=== PATIENT | male | born 1950 | race Two or more races ===

== ENCOUNTER 2018-01-26 16:24 | Inpatient (IN) | payer MEDICARE, OTHER ==
[2018-01-26] MEDS: HYDROCODONE/APAP (5/325) TAB PO ×2 (17:25→22:17)
[2018-01-26] MEDS: KETOROLAC 30 MG INJ IM (17:26)
[2018-01-26] MEDS: morphine 4 MG/ML VIAL IV (19:29)
[2018-01-26] MEDS: ONDANSETRON 4 MG INJ IV (19:29)
[2018-01-26] MEDS: SOD CHLORIDE 0.9% 1,000 ML IV ×2 (19:29→22:01)
[2018-01-26] MEDS ORDERED: ONDANSETRON 4 MG INJ IV (20:00)
[2018-01-26] MEDS ORDERED: ACETAMINOPHEN 325 MG TAB PO (20:00)
[2018-01-26] MEDS ORDERED: NACL 0.9% 3 ML SYG IV (20:00)
[2018-01-26 20:14] LABS: ADD MAN DIFF? NO
[2018-01-26 20:16] LABS: BASOPHILS % 0.1 % (0.0-2.0); EOSINOPHILS % 0.1 % (0.0-7.0); HEMATOCRIT 39.1 % (42.0-52.0); HEMOGLOBIN 12.9 g/dl (14.0-18.0); LYMPHOCYTES # 1.3 10^3/ul (0.8-2.9); LYMPHOCYTES % 15.6 % (15.0-51.0); MEAN CORPUSCULAR HEMOGLOBIN 29.3 pg (29.0-33.0); MEAN CORPUSCULAR VOLUME 88.9 fl (82.0-101.0); MEAN PLATELET VOLUME 10.6 fl (7.4-10.4); MONOCYTE # 0.7 10^3/ul (0.3-0.9); MONOCYTES % 8.9 % (0.0-11.0); NEUTROPHIL # 6.2 10^3/ul (1.6-7.5); NEUTROPHILS % 74.9 % (39.0-77.0); PLATELET COUNT 176 10^3/UL (140-415); RED CELL DISTRIBUTION WIDTH 12.6 % (11.5-14.5)
[2018-01-26 20:16] LABS: WHITE BLOOD COUNT 8.2 10^3/ul (4.8-10.8)
[2018-01-26 20:37] LABS: INR 0.96; PROTIME 12.9 Sec (11.9-14.9)
[2018-01-26 20:38] LABS: PARTIAL THROMBOPLASTIN TIME 29.2 Sec (23.0-35.0)
[2018-01-26 20:39] LABS: ALANINE AMINOTRANSFERASE 62 IU/L (13-69); ALBUMIN/GLOBULIN RATIO 1.03; ALKALINE PHOSPHATASE 82 IU/L (42-121); ANION GAP 5 (5-13); ASPARTATE AMINO TRANSFERASE 37 IU/L (15-46); BILIRUBIN,INDIRECT 0.4 mg/dl (0-1.1); BILIRUBIN,TOTAL 0.4 mg/dl (0.2-1.3); BLOOD UREA NITROGEN 14 mg/dl (7-20); CALCIUM 7.2 mg/dl (8.4-10.2); CARBON DIOXIDE 20 mmol/L (21-31); CHLORIDE 117 mmol/L (97-110); CREATININE 0.69 mg/dl (0.61-1.24); Estimated GFR > 60 mL/min (>60); GLUCOSE 97 mg/dl (70-220); POTASSIUM 3.1 mmol/L (3.5-5.1); SODIUM 142 mmol/L (135-144); TOTAL PROTEIN 5.9 g/dl (6.1-8.1)
[2018-01-26] MEDS: POTASSIUM CHLORIDE (SR) 20 MEQ TAB PO (21:03)
[2018-01-26] MEDS: morphine 2 MG INJ IV (21:29)
[2018-01-26] MEDS ORDERED: HEPARIN 5,000 UNIT/0.5 ML VIAL (21:59)
[2018-01-26] MEDS: HEPARIN 5,000 UNIT/1 ML VIAL SC (22:04)
[2018-01-27 05:42] LABS: ADD MAN DIFF? NO
[2018-01-27] MEDS: morphine 2 MG INJ IV ×5 (05:48→22:23)
[2018-01-27 05:58] LABS: BASOPHILS % 0.2 % (0.0-2.0); EOSINOPHILS # 0.1 10^3/ul (0.0-0.5); EOSINOPHILS % 1.4 % (0.0-7.0); HEMATOCRIT 37.5 % (42.0-52.0); HEMOGLOBIN 12.1 g/dl (14.0-18.0); LYMPHOCYTES # 1.2 10^3/ul (0.8-2.9); LYMPHOCYTES % 21.4 % (15.0-51.0); MEAN CORPUSCULAR HEMOGLOBIN 29.2 pg (29.0-33.0); MEAN CORPUSCULAR HGB CONC 32.3 g/dl (32.0-37.0); MEAN CORPUSCULAR VOLUME 90.6 fl (82.0-101.0); MEAN PLATELET VOLUME 11.3 fl (7.4-10.4); MONOCYTE # 0.7 10^3/ul (0.3-0.9); MONOCYTES % 12.6 % (0.0-11.0); NEUTROPHIL # 3.6 10^3/ul (1.6-7.5); NEUTROPHILS % 64.2 % (39.0-77.0); PLATELET COUNT 159 10^3/UL (140-415); RED BLOOD COUNT 4.14 10^6/ul (4.70-6.10)
[2018-01-27 05:58] LABS: WHITE BLOOD COUNT 5.6 10^3/ul (4.8-10.8)
[2018-01-27 06:03] LABS: HEMOGLOBIN A1C 5.8 % (0-5.9)
[2018-01-27] MEDS ORDERED: HEPARIN 5,000 UNIT/0.5 ML VIAL ×3 (06:18→22:04)
[2018-01-27] MEDS: HEPARIN 5,000 UNIT/1 ML VIAL SC ×3 (06:23→22:30)
[2018-01-27 06:29] LABS: ALANINE AMINOTRANSFERASE 64 IU/L (13-69); ALBUMIN 3.7 g/dl (3.3-4.9); ALBUMIN/GLOBULIN RATIO 1.32; ALKALINE PHOSPHATASE 74 IU/L (42-121); ANION GAP 9 (5-13); ASPARTATE AMINO TRANSFERASE 35 IU/L (15-46); BILIRUBIN,INDIRECT 0.9 mg/dl (0-1.1); BILIRUBIN,TOTAL 0.9 mg/dl (0.2-1.3); BLOOD UREA NITROGEN 20 mg/dl (7-20); CALCIUM 8.6 mg/dl (8.4-10.2); CARBON DIOXIDE 24 mmol/L (21-31); CHLORIDE 107 mmol/L (97-110); CREATININE 0.85 mg/dl (0.61-1.24); Estimated GFR > 60 mL/min (>60); GLUCOSE 128 mg/dl (70-220); POTASSIUM 4.5 mmol/L (3.5-5.1); SODIUM 140 mmol/L (135-144); TOTAL PROTEIN 6.5 g/dl (6.1-8.1)
[2018-01-27 06:48] LABS: THYROID STIMULATING HORMONE 0.535 MIU/L (0.465-4.680)
[2018-01-27 09:21] LABS: CHOLESTEROL 145 mg/dl (100-200)
[2018-01-27 09:21] LABS: CHOL/HDL RATIO 4.8 RATIO; HDL CHOLESTEROL 30 mg/dl (31-75); LDL CHOLESTEROL,CALCULATED 89 mg/dl; TRIGLYCERIDES 131 mg/dl (0-149)
[2018-01-27] MEDS: BISACODYL (EC) 5 MG TAB PO (09:33)
[2018-01-27] MEDS: DOCUSATE SODIUM 100 MG CAP PO (09:33)
[2018-01-27] MEDS: BENAZEPRIL 5 MG TAB PO (09:34)
[2018-01-27] MEDS: SOD CHLORIDE 0.9% 1,000 ML IV (09:35)
[2018-01-27] MEDS: HYDROCODONE/APAP (5/325) TAB PO (12:25)
[2018-01-28] MEDS: SOD CHLORIDE 0.9% 1,000 ML IV ×2 (01:00→13:24)
[2018-01-28] MEDS: morphine 2 MG INJ IV ×5 (02:40→22:08)
[2018-01-28 05:28] LABS: ADD MAN DIFF? NO
[2018-01-28 05:31] LABS: BASOPHILS % 0.3 % (0.0-2.0); EOSINOPHILS # 0.1 10^3/ul (0.0-0.5); EOSINOPHILS % 1.4 % (0.0-7.0); LYMPHOCYTES # 1.5 10^3/ul (0.8-2.9); LYMPHOCYTES % 23.8 % (15.0-51.0); MEAN CORPUSCULAR HGB CONC 32.4 g/dl (32.0-37.0); MEAN CORPUSCULAR VOLUME 89.4 fl (82.0-101.0); MEAN PLATELET VOLUME 10.9 fl (7.4-10.4); MONOCYTE # 0.7 10^3/ul (0.3-0.9); MONOCYTES % 11.4 % (0.0-11.0); NEUTROPHIL # 4.1 10^3/ul (1.6-7.5); NEUTROPHILS % 62.6 % (39.0-77.0); PLATELET COUNT 140 10^3/UL (140-415); POSITIVE DIFF @See below; RED BLOOD COUNT 4.14 10^6/ul (4.70-6.10); RED CELL DISTRIBUTION WIDTH 12.6 % (11.5-14.5)
[2018-01-28 05:31] LABS: WHITE BLOOD COUNT 6.5 10^3/ul (4.8-10.8)
[2018-01-28] MEDS ORDERED: HEPARIN 5,000 UNIT/0.5 ML VIAL ×2 (05:32→13:08)
[2018-01-28] MEDS: HYDROCODONE/APAP (5/325) TAB PO ×2 (05:36→20:40)
[2018-01-28] MEDS: HEPARIN 5,000 UNIT/1 ML VIAL SC ×3 (05:46→22:00)
[2018-01-28 05:49] LABS: INR 1.01; PROTIME 13.4 Sec (11.9-14.9)
[2018-01-28 05:50] LABS: PARTIAL THROMBOPLASTIN TIME 33.4 Sec (23.0-35.0)
[2018-01-28 06:20] LABS: ANION GAP 8 (5-13); BLOOD UREA NITROGEN 11 mg/dl (7-20); CALCIUM 8.6 mg/dl (8.4-10.2); CARBON DIOXIDE 26 mmol/L (21-31); CHLORIDE 104 mmol/L (97-110); Estimated GFR > 60 mL/min (>60); GLUCOSE 111 mg/dl (70-220); POTASSIUM 4.2 mmol/L (3.5-5.1); SODIUM 138 mmol/L (135-144)
[2018-01-28 06:22] LABS: PHOSPHORUS 3.1 mg/dl (2.5-4.9)
[2018-01-28 06:22] LABS: MAGNESIUM 1.8 mg/dl (1.7-2.5)
[2018-01-28] MEDS: BENAZEPRIL 5 MG TAB PO (08:52)
[2018-01-29] MEDS: SOD CHLORIDE 0.9% 1,000 ML IV ×4 (02:15→20:29)
[2018-01-29 05:01] LABS: WHITE BLOOD COUNT 4.9 10^3/ul (4.8-10.8)
[2018-01-29 05:01] LABS: ADD MAN DIFF? NO; BASOPHILS % 0.2 % (0.0-2.0); EOSINOPHILS # 0.1 10^3/ul (0.0-0.5); EOSINOPHILS % 2.4 % (0.0-7.0); HEMATOCRIT 36.4 % (42.0-52.0); HEMOGLOBIN 11.9 g/dl (14.0-18.0); LYMPHOCYTES # 1.1 10^3/ul (0.8-2.9); LYMPHOCYTES % 22.3 % (15.0-51.0); MEAN CORPUSCULAR HEMOGLOBIN 29.2 pg (29.0-33.0); MEAN CORPUSCULAR HGB CONC 32.7 g/dl (32.0-37.0); MEAN CORPUSCULAR VOLUME 89.2 fl (82.0-101.0); MEAN PLATELET VOLUME 10.8 fl (7.4-10.4); MONOCYTE # 0.7 10^3/ul (0.3-0.9); MONOCYTES % 14.6 % (0.0-11.0); NEUTROPHILS % 60.1 % (39.0-77.0); PLATELET COUNT 144 10^3/UL (140-415); RED BLOOD COUNT 4.08 10^6/ul (4.70-6.10); RED CELL DISTRIBUTION WIDTH 12.4 % (11.5-14.5)
[2018-01-29 05:42] LABS: MAGNESIUM 1.9 mg/dl (1.7-2.5)
[2018-01-29 05:42] LABS: PHOSPHORUS 3.3 mg/dl (2.5-4.9)
[2018-01-29 05:43] LABS: ANION GAP 8 (5-13); BLOOD UREA NITROGEN 14 mg/dl (7-20); CALCIUM 8.7 mg/dl (8.4-10.2); CARBON DIOXIDE 26 mmol/L (21-31); CHLORIDE 105 mmol/L (97-110); CREATININE 0.77 mg/dl (0.61-1.24); Estimated GFR > 60 mL/min (>60); GLUCOSE 110 mg/dl (70-220); POTASSIUM 4.6 mmol/L (3.5-5.1); SODIUM 139 mmol/L (135-144)
[2018-01-29] MEDS: HEPARIN 5,000 UNIT/1 ML VIAL SC ×3 (05:43→22:38)
[2018-01-29] MEDS ORDERED: SEVOFLURANE 15 MIN (07:00)
[2018-01-29] MEDS: BENAZEPRIL 5 MG TAB PO (09:00)
[2018-01-29] MEDS ORDERED: HYDROmorphONE 1 MG/5 ML IV SYRINGE IV ×3 (11:30→19:00)
[2018-01-29] MEDS ORDERED: LABETALOL HCL 20MG INJ IV (11:30)
[2018-01-29] MEDS ORDERED: ONDANSETRON 4 MG INJ IV (11:30)
[2018-01-29] MEDS ORDERED: BISACODYL (EC) 5 MG TAB PO (11:30)
[2018-01-29] MEDS ORDERED: LIDOCAINE 1% (MDV) 20 ML INJ (11:49)
[2018-01-29] MEDS ORDERED: PROPOFOL 20 ML (11:49)
[2018-01-29] MEDS ORDERED: MIDAZOLAM 1 MG/ML 2 ML INJ (11:49)
[2018-01-29] MEDS ORDERED: ROCURONIUM 50 MG INJ ×2 (11:49→14:37)
[2018-01-29] MEDS ORDERED: LABETALOL HCL 20MG INJ (12:04)
[2018-01-29] MEDS ORDERED: CEFAZOLIN 1 GM INJ ×2 (12:37→16:04)
[2018-01-29] MEDS ORDERED: SUCCINYLCHOLINE CHLORIDE 100 MG/5 ML SYG IV (12:51)
[2018-01-29] MEDS ORDERED: GLYCOPYRROLATE 0.4 MG INJ (14:37)
[2018-01-29] MEDS ORDERED: NEOSTIGMINE 3 MG/3 ML SYRINGE (14:37)
[2018-01-29] MEDS ORDERED: PHENYLephrine (100 MCG/ML) 5ML SYG (16:04)
[2018-01-29] MEDS ORDERED: ROPIVACAINE 0.5 % 30 ML VIAL (17:25)
[2018-01-29] MEDS: HYDROmorphONE 1 MG/5 ML IV SYRINGE IV (18:40)
[2018-01-29] MEDS ORDERED: morphine 4 MG/ML VIAL IV (19:00)
[2018-01-29] MEDS: hydrALAzine 20 MG INJ IV (19:14)
[2018-01-29] MEDS: ONDANSETRON 4 MG INJ IV (20:25)
[2018-01-29] MEDS: POLYETHYLENE GLYCOL 17 GM PACKET PO (21:00)
[2018-01-29] MEDS ORDERED: HEPARIN 5,000 UNIT/0.5 ML VIAL (22:33)
[2018-01-30] MEDS: SOD CHLORIDE 0.9% 1,000 ML IV ×3 (03:00→07:02)
[2018-01-30] MEDS: ACETAMINOPHEN 325 MG TAB PO (04:47)
[2018-01-30 05:06] LABS: ADD MAN DIFF? NO
[2018-01-30 05:19] LABS: WHITE BLOOD COUNT 5.2 10^3/ul (4.8-10.8)
[2018-01-30 05:19] LABS: BASOPHILS % 0.2 % (0.0-2.0); EOSINOPHILS # 0.1 10^3/ul (0.0-0.5); EOSINOPHILS % 1.9 % (0.0-7.0); HEMATOCRIT 35.2 % (42.0-52.0); HEMOGLOBIN 11.6 g/dl (14.0-18.0); LYMPHOCYTES # 0.9 10^3/ul (0.8-2.9); LYMPHOCYTES % 17.9 % (15.0-51.0); MEAN CORPUSCULAR HEMOGLOBIN 29.1 pg (29.0-33.0); MEAN CORPUSCULAR VOLUME 88.4 fl (82.0-101.0); MEAN PLATELET VOLUME 10.7 fl (7.4-10.4); MONOCYTE # 0.7 10^3/ul (0.3-0.9); MONOCYTES % 12.4 % (0.0-11.0); NEUTROPHIL # 3.5 10^3/ul (1.6-7.5); NEUTROPHILS % 67.2 % (39.0-77.0); PLATELET COUNT 152 10^3/UL (140-415); RED BLOOD COUNT 3.98 10^6/ul (4.70-6.10); RED CELL DISTRIBUTION WIDTH 12.5 % (11.5-14.5)
[2018-01-30 05:46] LABS: PHOSPHORUS 3.3 mg/dl (2.5-4.9)
[2018-01-30 05:57] LABS: ANION GAP 9 (5-13); BLOOD UREA NITROGEN 11 mg/dl (7-20); CALCIUM 8.3 mg/dl (8.4-10.2); CARBON DIOXIDE 24 mmol/L (21-31); CHLORIDE 105 mmol/L (97-110); CREATININE 0.62 mg/dl (0.61-1.24); Estimated GFR > 60 mL/min (>60); GLUCOSE 111 mg/dl (70-220); POTASSIUM 4.1 mmol/L (3.5-5.1); SODIUM 138 mmol/L (135-144)
[2018-01-30] MEDS: BENAZEPRIL 5 MG TAB PO (08:16)
[2018-01-30] MEDS: POLYETHYLENE GLYCOL 17 GM PACKET PO ×2 (08:17→20:31)
[2018-01-30] MEDS: ENOXAPARIN 40 MG/0.4 ML SYG SC (08:19)
[2018-01-30] MEDS: HYDROCODONE/APAP (5/325) TAB PO ×2 (10:10→17:34)
[2018-01-30] MEDS: morphine 2 MG INJ IV ×2 (16:24→22:00)
[2018-01-31] MEDS: HYDROCODONE/APAP (10/325) TAB PO ×4 (00:10→15:43)
[2018-01-31] MEDS: morphine 2 MG INJ IV (02:24)
[2018-01-31] MEDS: POLYETHYLENE GLYCOL 17 GM PACKET PO (09:45)
[2018-01-31] MEDS: BENAZEPRIL 5 MG TAB PO (09:47)
[2018-01-31] MEDS: ENOXAPARIN 40 MG/0.4 ML SYG SC (09:50)
[2018-01-31] MEDS ORDERED: morphine LIQ (10 MG/5 ML) CUP PO (17:00)
== END 2018-01-31 17:00 | disposition home health service (06) | DRG 494 ==
LOC: FTE 16:24 → MS1 19:41
PROC: 0QSG34Z Reposition Right Tibia with Internal Fixation Device, Percutaneous Approach (ICD-10-PCS; principal; 2018-01-29 13:00)
DX: S82.871A Displaced pilon fracture of right tibia, initial encounter for closed fracture (principal); I10 Essential (primary) hypertension; E78.5 Hyperlipidemia, unspecified; R73.03 Prediabetes; D64.9 Anemia, unspecified; W19.XXXA Unspecified fall, initial encounter
CPT/HCPCS: 36415; 71045; 73600; 73610-RT; 73700; 80048; 80053; 80061; 83036; 83735; 84100; 84443; 85025; 85610; 85730; 90686; 93005; 96372; 96374; 96375; 97110; 97116; 97162; 97530; 99285-25

== ENCOUNTER 2018-04-01 15:11 | Emergency (ER) | payer MEDICARE, OTHER ==
[2018-04-01] MEDS: traMADol 50 MG TAB PO (19:42)
== END 2018-04-01 21:18 | disposition home or self-care (01) ==
LOC: E/R 15:11
DX: G89.18 Other acute postprocedural pain (principal); I10 Essential (primary) hypertension; Z47.2 Encounter for removal of internal fixation device
CPT/HCPCS: 99283